=== PATIENT | female | born 1940 | race Caucasian/White ===

== ENCOUNTER 2018-06-06 05:36 | Inpatient (IN) ==
--- NOTE | 2018-05-23 09:16 | Diag Imaging Result Doc PS360 ---
EXAM: CHEST-2 VIEWS INDICATION: PAT TECHNIQUE: 2 views COMPARISON: 10/09/2017 FINDINGS: Trace linear scarring at the right lung base is stable. The lungs are clear, otherwise. There is no discrete pleural fluid collection or pneumothorax. The cardiomediastinal silhouette and central vasculature are grossly unremarkable. IMPRESSION: Trace right basilar linear scarring. No definite acute chest pathology. Electronically signed by Kaveh Martinez 05/23/2018 9:13 AM
[2018-05-23 09:32] LABS: URINE SOURCE VOIDED
[2018-05-23 09:34] LABS: BASO# 0.12 X1000 (0.0-0.2); BASO% 1.2 % (0.0-0.8); EOS% 8.2 % (0.0-10.0); HEMATOCRIT 34.5 % (37.0-47.0); LYMPH# 1.63 X1000 (1.2-3.4); LYMPH% 16.7 % (20.5-51.1); MCH 31.8 PG (27-31); MCHC 31.9 g/dL (33-37); MCV 99.7 FL (81-99); MONO# 0.38 X1000 (0.11-0.59); MONO% 3.9 % (1.7-9.3); MPV 10.1 FL (7.4-10.4); NEUT# 6.85 X1000 (1.4-6.5); PLT 397 X1000 (130-400); RBC 3.46 XMIL (4.2-5.4); RDW 14.5 % (11.5-14.5); WBC 9.78 X1000 (4.8-10.8)
[2018-05-23 09:36] LABS: BILIRUBIN URINE NEGATIVE (NEGATIVE); BLOOD URINE TRACE (NEGATIVE); COLOR YELLOW; GLUCOSE URINE NEGATIVE (NEGATIVE); KETONE URINE NEGATIVE (NEGATIVE); LEUKOCYTES URINE LARGE (NEGATIVE); NITRITE URINE POSITIVE (NEGATIVE); PH URINE 5.5; PROTEIN URINE TRACE mg/dL (NEGATIVE); SP GRAVITY URINE 1.021; TURBIDITY URINE HAZY (CLEAR); UROBILINOGEN URINE NORMAL (NORMAL)
[2018-05-23 09:38] LABS: UR EPITHELIAL CELLS <10 /HPF (<10); URINE BACTERIA 4+ /HPF; URINE WBC TNTC /HPF (<10)
--- NOTE | 2018-05-23 10:06 | EKG Report ---
Test Performed on : 05/23/2018 08:48:05 AM Test Reason : PAT Blood Pressure : / mmHG Vent. Rate : 060 BPM Atrial Rate : 060 BPM P-R Int : 178 ms QRS Dur : 136 ms QT Int : 456 ms P-R-T Axes : 090 065 059 degrees QTc Int : 456 ms Sinus rhythm. with fusion complexes Left bundle branch block Abnormal ECG When compared with ECG of 09-OCT-2017 08:19, fusion complexes are now present Left bundle branch block is now present Confirmed by Claude GUTIÉRREZ, Melchor Shoemaker ([id number]) on 05/24/2018 8:52:27 AM
[2018-05-23 10:12] LABS: ALB/GLOB RATIO 1.4; ALBUMIN 4.1 g/dL (3.5-5.0); CALCIUM 8.9 mg/dL (8.8-10.2); CREATININE 1.5 mg/dL (0.5-0.9); POTASSIUM 4.7 mmol/L (3.5-5.1); TOTAL BILIRUBIN 0.15 mg/dL (0.20-1.00); TOTAL PROTEIN 7.1 g/dL (6.3-8.3)
[2018-06-06] MEDS ORDERED: LR 1,000 ML ONE (06:56)
[2018-06-06] MEDS ORDERED: PEPCID ONE (06:56)
[2018-06-06] MEDS ORDERED: KEFZOL 1 GM/D5W 1 GM/50 ML IVPB ONE (06:56)
[2018-06-06] MEDS ORDERED: REGLAN ONE (06:56)
[2018-06-06] MEDS ORDERED: XYLOCAINE-MPF 2% ONE (07:23)
[2018-06-06] MEDS ORDERED: DIPRIVAN 1% ONE (07:23)
--- NOTE | 2018-06-06 07:24 | Diag Imaging Result Doc PS360 ---
EXAM: LYMPHOSCINTIGRAPHY W/IMG 06/06/2018 HISTORY: LT BREAST MASS TECHNIQUE: Lymphoscintigram, 598 uCi of technetium 99m Lymphoseek intradermally COMMENT: There are several faint foci of uptake lateral to the injection site one in particular is intensely present in the axilla. IMPRESSION: Snowflake node in the left axilla. Electronically signed by Garrett Sanchez 06/06/2018 7:22 AM
[2018-06-06] MEDS ORDERED: METHYLENE BLUE 0.5% ONE (08:02)
[2018-06-06] MEDS ORDERED: SENSORCAINE-MPF 0.5%/EPI 1:200,000 ONE (08:02)
[2018-06-06] MEDS ORDERED: FENTANYL ONE ×2 (08:32→09:10)
[2018-06-06] MEDS ORDERED: EPHEDRINE ONE (08:54)
[2018-06-06] MEDS ORDERED: DECADRON ONE (08:55)
[2018-06-06] MEDS ORDERED: ZOFRAN ONE (08:55)
[2018-06-06] MEDS ORDERED: OFIRMEV 1000 MG/ISOTONIC SOLN 1,000 MG/100 ML BOTTLE ONE (08:55)
[2018-06-06] MEDS ORDERED: D5 1/2 NS 1,000 ML ONE (10:09)
--- NOTE | 2018-06-06 10:16 | OPERATIVE NOTE ---
PROCEDURE DATE: 06/06/2018 PREOPERATIVE DIAGNOSIS: Carcinoma of the left breast. POSTOPERATIVE DIAGNOSIS: Carcinoma of the left breast. PROCEDURE PERFORMED: Total mastectomy with sentinel nodes, left side. DESCRIPTION OF PROCEDURE: The patient was brought to the operating room. After satisfactory induction of IV and LMA anesthesia, her left breast and axilla were prepped and draped in the appropriate manner. A symmetrical type incision was made, incorporating the central tumor with dissection out to the lateral border of the axilla. Superior and inferior flaps were elevated with electrocautery, taken down to the fascia of the pectoralis major muscle. The breast tissue was subsequently swept laterally, again with hemostasis being achieved by electrocautery. One larger branch of the KAREN coming through had a suture ligation with 3-0 silk. On reaching the lateral axilla, the sentinel nodes were detected. There were incorporated in the mastectomy lateral excision. There appeared to be two. Counts were over 1000. The breast was subsequently amputated. The wound was packed, irrigated with saline, and two [place] drains were placed through the lower border of the incision, one placed laterally and one medially. The subcutaneous was subsequently closed with 0 Vicryl, the skin itself with 4-0 Vicryl subcuticular. The drains were anchored with 0 silk. Sterile dressings were applied. She was subsequently awakened and extubated in the operating room and transferred to recovery. Estimated blood loss was around 75 mL. cc: Tito Godinez MD
[2018-06-06] MEDS: MORPHINE ONE ×2 (10:52→10:56)
[2018-06-06] MEDS ORDERED: MORPHINE ONE (11:01)
[2018-06-06] MEDS ORDERED: ZOFRAN IV PRN (14:14)
[2018-06-06] MEDS ORDERED: MORPHINE IV PRN (14:16)
[2018-06-06] MEDS: NORCO-10 PO PRN ×2 (14:24→18:10)
[2018-06-06] MEDS: D5 1/2 NS 1,000 ML IV SCH (14:26)
[2018-06-06] MEDS: PERIDEX MT SCH (21:00)
[2018-06-06] MEDS: PRINIVIL PO SCH (21:00)
[2018-06-07] MEDS: NORCO-10 PO PRN ×3 (01:28→22:39)
[2018-06-07] MEDS: PRINIVIL PO SCH (09:52)
[2018-06-07] MEDS: PERIDEX MT SCH ×2 (09:53→20:11)
[2018-06-07] MEDS: COREG PO SCH (09:54)
[2018-06-07] MEDS: CORDARONE PO SCH (09:54)
[2018-06-07] MEDS ORDERED: SALINE LOCK IV FLUID XX ONE (10:25)
[2018-06-07] MEDS: D5 1/2 NS 1,000 ML IV SCH (17:15)
[2018-06-07] MEDS ORDERED: TYLENOL PO PRN (17:46)
[2018-06-08] MEDS: NORCO-10 PO PRN ×3 (05:17→20:02)
[2018-06-08] MEDS: COREG PO SCH (09:34)
[2018-06-08] MEDS: PERIDEX MT SCH ×2 (09:34→20:01)
[2018-06-08] MEDS: CORDARONE PO SCH (09:34)
[2018-06-08] MEDS: PRINIVIL PO SCH (09:34)
[2018-06-08] MEDS: D5 1/2 NS 1,000 ML IV SCH (09:35)
[2018-06-09] MEDS: NORCO-10 PO PRN ×2 (01:51→05:22)
[2018-06-09 07:41] VITALS: BP 133/39
[2018-06-09] MEDS: COREG PO SCH (10:13)
[2018-06-09] MEDS: PRINIVIL PO SCH ×2 (10:13→10:16)
[2018-06-09] MEDS: CORDARONE PO SCH (10:13)
[2018-06-09] MEDS: PERIDEX MT SCH (10:13)
[2018-06-09] MEDS: D5 1/2 NS 1,000 ML IV SCH (10:14)
== END 2018-06-09 11:09 | disposition home or self-care (01) | DRG 581 ==
LOC: OR 05:36 → SURHOLD 05:36 → OBSVTOIN 11:12 → 4N 12:18
PROVIDERS: ADMIT Surgery; ATTEND Surgery
CPT/HCPCS: 71020; 71046; 78195; 80053; 81001; 85025; 88309; 93005; 93010; 94761; 94799; A9270; A9520; J0131; J0690; J1100; J2270; J2405; J3010; J7120; Q9968